=== PATIENT | female | born 1960 | race Caucasian/White ===

== ENCOUNTER 2017-12-28 17:14 | Emergency (ER) | payer BC ==
[~2017-12-28] VITALS: Ht 165.1 cm; Wt 93.9 kg
--- NOTE | ~2017-12-28 | EKG ---
[place] [address] [address] [facility] [place] [employer] [place] [address] ELECTROCARDIOGRAM REPORT Name: GIAN SCHULTE Room #: [facility]#: [id number] Admission: 12/28/17 Attend Phys: Discharge: 12/28/17 Date of : 64 Report #: [id number] THIS REPORT FOR: //name// [facility] ED Test Date: 2017-12-28 Test Time: 17:49:27 Pat Name: GIAN SCHULTE Department: Room: Gender: F Commercial Service Technician: LAURA : 1960 Requested By: Ember Neil Order Number: [id number] MD: Osvaldo Roe Measurements Intervals [place] Rate: 79 P: 26 NM: 133 QRS: 16 QRSD: 103 T: 1 QT: 385 QTc: 442 Interpretive Statements Sinus rhythm RSR' in V1 or V2, right VCD Compared to ECG 08/12/2010 16:06:50 RSR' in V1 or V2 now present ST (T wave) deviation no longer present Electronically Signed On 12-29-2017 10:21:35 [employer] by Osvaldo Roe [email or web address] <ELECTRONICALLY SIGNED> By: Osvaldo Roe MD 12/29/17 102 [id number] 48 Osvaldo Roe MD /EPI
[~2017-12-28 17:14] MED LIST: AZITHROMYCIN PO; CLARITIN10 MG PO; COLACE 100 MG100 MG PO; ENJUVIA0.3 MG PO; IBUPROFEN 600600 M1 PO; IRON; MEDROL DOSPAK21 TA1 PO; MOTOFEN TABLET1 EACH PO; PERCOCET 5-3251 EACH PO; PROVENTIL; VIVELLE1 EAC1 TD; ZOSYN 4.5 GRAM4.5 GM IV; [UNRECOGNIZED DRUG - CODE] PO
[2017-12-28 17:35] LABS: URINE BILIRUBIN NEGATIVE (Negative); URINE BLOOD NEGATIVE (Negative); URINE CLARITY CLEAR; URINE COLOR YELLOW; URINE GLUCOSE-RANDOM* NEGATIVE (Negative); URINE KETONES NEGATIVE (Negative); URINE LEUKOCYTES-REFLEX NEGATIVE (Negative); URINE NITRITE-REFLEX NEGATIVE (Negative); URINE PROTEIN (DIPSTICK) NEGATIVE (Negative); URINE UROBILINOGEN 0.2 E.U./dl (0.2-1.0)
[2017-12-28 18:00] LABS: ABSOLUTE NEUTROPHILS 6.9 thou/uL (1.4-8.2); BASOPHILS 0.7 % (0.0-2.0); EOSINOPHILS 1.2 % (0.0-3.0); HEMATOCRIT 41.4 % (37.0-47.0); HEMOGLOBIN 14.5 gm/dL (12.0-15.0); LYMPHOCYTES 24.7 % (24.0-44.0); MCH 32.1 pg (26.0-34.0); MCHC 34.9 g/dL (28.0-37.0); MCV 91.8 fL (80.0-100.0); MONOCYTES 6.1 % (1.0-8.0); PLATELET COUNT 211 thou/uL (150-400); POLYS 67.3 % (36.0-66.0); RBC 4.51 mil/uL (4.20-5.00); RDW 12.6 % (10.5-14.5); WBC 10.2 thou/uL (4.0-11.0)
[2017-12-28 18:09] LABS: CALCIUM 9.3 mg/dL (8.5-10.1); POTASSIUM 3.5 mmol/L (3.5-5.1)
[2017-12-28] MEDS ORDERED: LISINOPRIL20 MG PO (18:11)
[2017-12-28] MEDS ORDERED: SINGULAIR 10 MG10 M1 PO (18:11)
[2017-12-28] MEDS ORDERED: LISINOPRIL10 MG PO (18:11)
[2017-12-28] MEDS ORDERED: LIPITOR 20 MG T20 M1 PO (18:11)
[2017-12-28] MEDS ORDERED: PROGESTERONE100 MG PO (18:12)
[2017-12-28] MEDS ORDERED: ACIPHEX 20 MG T20 MG PO (18:12)
[2017-12-28 18:15] LABS: TOTAL BILIRUBIN 0.3 mg/dL (<0.1-1.0); TOTAL PROTEIN 7.1 g/dL (6.4-8.2)
[2017-12-28] MEDS ORDERED: NORCO 5-325 TA1 EACH PO (20:39)
[2017-12-28] MEDS ORDERED: ONDANSETRON HCL4 M2 PO (20:39)
== END 2017-12-28 21:00 | disposition home or self-care (01) ==
LOC: ER 17:14
PROVIDERS: Nurse Practitioner Family
DX: K80.20 Calculus of gallbladder without cholecystitis without obstruction (principal); I10 Essential (primary) hypertension; J45.909 Unspecified asthma, uncomplicated; Z86.2 Personal history of diseases of the blood and blood-forming organs and certain disorders involving the immune mechanism; Z90.710 Acquired absence of both cervix and uterus